=== PATIENT | male | born 2000 | race Caucasian/White ===

== ENCOUNTER 2024-12-05 11:36 | Inpatient (IN) ==
[2024-12-05 12:50] LABS: Hematocrit (blood only) 52.9 % (42.0-52.0); Hemoglobin 18.5 g/dl (14.0-18.0); Immature Granulocytes # (auto) 0.02 K/uL (0.01-0.20); Immature Granulocytes % (auto) 0.2 %; Mean Corpuscular Hemoglobin 31.1 pg (25.0-34.0); Mean Corpuscular Volume 88.9 fL (80.0-100.0); Platelet Count 316 K/uL (130-400); RDW Standard Deviation 42.4 fL (36.4-46.3); Red Blood Count 5.95 M/uL (4.70-6.10); White Blood Count 10.20 K/ul (4.8-10.8)
--- NOTE | 2024-12-05 12:57 | Emergency Department Note ---
History of Present Illness General Chief complaint: Illness Stated complaint: ACUTE SLEEP DEPRIVATION, BENADRYL OVERUSE Time Seen by Provider: 12/05/24 11:50 History of Present Illness Provider complaint: Mental health evaluation 24-year-old male presents emergency department for mental health evaluation. Patient reports he has not slept the last 54 hours. Patient states he is too anxious about his upcoming exams and academic performance. Patient states he is afraid he is going to fail. Patient reports he tried to take medications last night to sleep. Patient states he took 325 mg Benadryl between 11 PM and 2 AM yesterday in addition to 3 ibuprofen PMs last night between the same time. But still not been able to sleep. Patient reports no depression. Patient states sometimes he feels like the world will be better if he was not here. Home Medications Medication Instructions Recorded Confirmed Type No Known Home Medications 12/05/24 12/05/24 History Past Med/Surg History Problem List (Updated 12/05/24 @ 18:29 by Santiago Briceno MD) Anxiety (Acute) Social History Smoking Status: Never smoker Preferred Language: Uzbek Feels Safe at Home: Yes Gender Identity: Male Physical Exam Vital Signs Vital Signs - 24 hr 12/05/24 11:42 12/05/24 11:59 12/05/24 15:46 Temperature 36.6 C 37.1 C Temperature Source Oral Oral Pulse Rate 99 H 79 Pulse Rate [Left Finger] 60 Pulse Rhythm [Left Finger] Regular Pulse Strength [Left Finger] Normal Respiratory Rate 16 18 Respiratory Effort / Characteristics Non-Labored Spontaneous Non-Labored Respiratory Depth Normal Normal Respiratory Pattern Regular Regular Blood Pressure 135/86 Blood Pressure [Left Arm] 113/70 Blood Pressure Mean 102 Blood Pressure Mean [Left Arm] 84 Blood Pressure Position [Left Arm] Lying Pulse Oximetry 98 99 Oxygen Delivery Method Room Air Room Air Sepsis Recent Fever Within 48 Hours No Sepsis New/Unexplained Change in Mental Status No Sepsis Action Taken by Nursing No Action Required Physical Exam GENERAL: oriented to person, place, and time. appears well-developed and well- nourished. HENT: Exam performed. - Head: Normocephalic and atraumatic. EYES: Conjunctivae and EOM are normal. Right eye exhibits no discharge. Left eye exhibits no discharge. No scleral icterus. NECK: Normal range of motion. Neck supple. No JVD present. CV: Normal rate, regular rhythm, normal heart sounds and intact distal pulses. There is no peripheral edema. Palpable radial pulses bue. PULM/CHEST: Effort normal and breath sounds normal. No respiratory distress. No stridor. no wheezes. no rales. ABD: The abdomen is soft. There is no tenderness. NEURO: Motor and sensation grossly intact. SKIN: Skin is warm and dry. He is not diaphoretic. PSYCH: Pressured speech. Course Course 1150: The patient was evaluated in room D3B. A complete history and physical exam was performed Cardiac monitoring: An order was placed for continuous cardiac monitoring. The monitor shows a rate of 80 with sinus rhythm interpreted by me 1429: Patient medically cleared. Patient amenable to inpatient treatment. Case management is working up getting the patient and placement treatment. 1740: Patient excepted to 3 S. Medical Decision Making Laboratory Data Attestation: I reviewed the patient's lab results. 12/05/24 12:33 12/05/24 12:33 Lab Results 12/05/24 12/05/24 Range/Units 12:33 13:45 WBC 10.20 (4.8-10.8) K/ul RBC 5.95 (4.70-6.10) M/uL Hgb 18.5 H (14.0-18.0) g/dl Hct 52.9 H (42.0-52.0) % MCV 88.9 (80.0-100.0) fL MCH 31.1 (25.0-34.0) pg MCHC 35.0 (32.0-36.0) g/dL RDW Std Deviation 42.4 (36.4-46.3) fL RDW Coeff of Jenna 12.9 (11.5-14.5) % Plt Count 316 (130-400) K/uL MPV 10.1 (9.4-12.4) fL Immature Gran % (Auto) 0.2 % Neut % (Auto) 74.0 % Lymph % (Auto) 16.5 % [place] % (Auto) 8.4 % Eos % (Auto) 0.2 % Baso % (Auto) 0.7 % Neut # (Auto) 7.55 H (1.40-6.50) K/uL Lymph # (Auto) 1.68 (1.20-3.40) K/uL [place] # (Auto) 0.86 H (0.11-0.59) K/uL Eos # (Auto) 0.02 (0.00-0.50) K/uL Baso # (Auto) 0.07 (0.00-0.20) K/uL Immature Gran # (Auto) 0.02 (0.01-0.20) K/uL Sodium 140 (136-145) mmol/L Potassium 4.2 (3.5-5.1) mmol/L Chloride 106 (98-107) mmol/L Carbon Dioxide 27 (21-32) mmol/L Anion Gap 7 (3-11) BUN 15 (6-23) mg/dl Creatinine 0.93 (0.6-1.4) mg/dl Est Cr Clr Drug Dosing 107.7 ml/min eGFR 119.06 BUN/Creatinine Ratio 16.1 (10-20) Glucose 92 (70-99(Fasting)) mg/dl Calcium 9.8 (8.6-10.3) mg/dl Total Bilirubin 0.5 (0.2-1.0) mg/dl AST 24 (13-39) U/L ALT 29 (7-52) U/L Alkaline Phosphatase 78 (34-104) U/L Total Protein 7.9 (6.0-8.3) gm/dl Albumin 4.7 (3.4-5.0) gm/dl Globulin 3.2 (2.5-4.0) gm/dl Albumin/Globulin Ratio 1.5 (0.9-2) TSH 2.058 (0.300-4.500) uIu/ml Urine Color Yellow Urine Appearance Turbid A (Clear) Urine pH 8.0 H (4.5-7.5) Ur Specific [place] 1.010 (1.000-1.030) Urine Protein Negative (Negative) Urine Glucose (UA) Negative (Negative) Urine Ketones Negative (Negative) Urine Blood Negative (Negative) Urine Nitrite Negative (Negative) Urine Bilirubin Negative (Negative) Urine Urobilinogen Negative (Negative) Ur Leukocyte Esterase 3+ H (Negative) Urine WBC (Auto) 11-20 H (0-5) /hpf Urine RBC (Auto) 0-2 (0-2) /hpf U Hyaline Cast (Auto) 0-2 (0-2) /lpf U Epithel Cells (Auto) 6-10 H (0-2) /hpf Urine Bacteria (Auto) 4+ H (None Seen) Urine Comment Salicylates < 3.0 L (3.0-30) mg/dl Urine Opiates Screen Neg (Neg) Ur Methadone, Qual Neg (Neg) Urine Fentanyl Screen Neg (Neg) Acetaminophen < 3 L (10-30) ug/ml Urine Barbiturates Neg (Neg) Ur Phencyclidine (PCP) Neg (Neg) U Amphetamin/Meth Scrn Neg (Neg) MDMA (Ecstasy) Screen Neg (Neg) U Benzodiazepines Scrn Neg (Neg) Ur Cocaine Metabolite Neg (Neg) U Marijuana (THC) Screen Neg (Neg) Ethyl Alcohol mg/dL < 10.0 (<10.0) mg/dl ECG Data Attestation: I personally reviewed and interpreted this ECG as follows: Rate (beats per minute): 76 Rhythm: + normal sinus ECG Intervals/blocks: + Normal QRS, + Normal WA and + Normal QT-c ECG ST segments: + Normal ST segments [facility] Narrative 1150: The patient was evaluated in room D3B. A complete history and physical exam was performed Cardiac monitoring: An order was placed for continuous cardiac monitoring. The monitor shows a rate of 80 with sinus rhythm interpreted by wv 1429: Patient medically cleared. Patient amenable to inpatient treatment. Case management is working up getting the patient and placement treatment. 1740: Patient excepted to 3 S. Impression & Plan Anxiety Discharge Plan Visit Data Chief Complaint: Illness Stated Complaint: ACUTE SLEEP DEPRIVATION, BENADRYL OVERUSE ED Provider: Santiago Briceno Discharge Problem: Anxiety Patient Disposition: Admitted As Inpatient Condition: Fair Discharge Instructions Interventions: ED Discharge Assessment Last Done: 12/05/24 17:47
[2024-12-05 13:07] LABS: Alanine Aminotransferase 29.0 U/L (7-52); Albumin Globulin Ratio 1.5 (0.9-2); Albumin Level 4.7 gm/dl (3.4-5.0); Alkaline Phosphatase 78.0 U/L (34-104); Anion Gap 7.0 (3-11); Bilirubin,Total 0.5 mg/dl (0.2-1.0); Blood Urea Nitrogen 15.0 mg/dl (6-23); Calcium 9.8 mg/dl (8.6-10.3); Carbon Dioxide 27.0 mmol/L (21-32); Chloride 106.0 mmol/L (98-107); Creatinine Clr Calc Pharmacy 107.7 ml/min; Globulin 3.2 gm/dl (2.5-4.0); Glucose 92.0 mg/dl (70-99(Fasting)); Potassium 4.2 mmol/L (3.5-5.1); Sodium 140.0 mmol/L (136-145); Total Protein 7.9 gm/dl (6.0-8.3)
[2024-12-05 13:10] LABS: Acetaminophen < 3 ug/ml (10-30); Salicylate < 3.0 mg/dl (3.0-30)
[2024-12-05 13:22] LABS: Thyroid Stimulating Hormone 2.058 uIu/ml (0.300-4.500)
[2024-12-05 13:59] LABS: Appearance Urine Turbid (Clear); Bacteria Urine Automated 4+ (None Seen); Cast Urine Automated 0-2 /lpf (0-2); Glucose Urine UA Negative (Negative); RBC Urine Automated 0-2 /hpf (0-2)
[2024-12-05 14:28] LABS: Amphetamines+Metham, Urine Neg (Neg); MDMA (Ecstacy), Urine Neg (Neg); Marijuana, Urine Neg (Neg)
--- NOTE | 2024-12-05 15:28 | Electrocardiogram Report ---
Test Reason : Blood Pressure : */* mmHG Vent. Rate : 76 BPM Atrial Rate : 76 BPM P-R Int : 126 ms QRS Dur : 112 ms QT Int : 370 ms P-R-T Axes : 65 57 35 degrees QTcB Int : 416 ms Normal sinus rhythm Normal ECG No previous ECGs available Confirmed by Vincent Santos ([id number]) on 12/05/2024 3:28:16 PM Referred By: REFERRED SELF Confirmed By: Vincent Santos
[2024-12-05] MEDS ORDERED: MAGNESIUM HYDROXIDE SUSP 30 ML UDC PO PRN (17:58)
[2024-12-05] MEDS ORDERED: BISMUTH SUBSALICYLATE 262 MG CHEW PO PRN (17:58)
[2024-12-05] MEDS ORDERED: SODIUM CHLORIDE 0.65% NA SOLN 45 ML (OCEAN) PRN (17:58)
[2024-12-05] MEDS ORDERED: ALUMINUM/MAGNESIUM SUSP 30 ML UDC PO PRN (17:58)
[2024-12-05] MEDS ORDERED: ACETAMINOPHEN 325 MG TAB PO PRN (17:58)
[2024-12-05] MEDS: LORazepam 1 MG TAB PO SCH (20:18)
[2024-12-06] MEDS: VORTIOXETINE HYDROBROMIDE 5 MG TAB PO SCH (13:06)
--- NOTE | 2024-12-06 13:38 | History & Physical ---
Date of Service December 06, 2024 Impression / Recommendations Impression KASEY PALOMARES is a 24-year-old M has no past psychiatric history, and was admitted on 12/05/24 17:52 on a 201 voluntary commitment for insomnia, anxious ruminations, and passive suicidal ideation. Presentation consistent with generalized anxiety disorder with panic attacks, social anxiety disorder (will further clarify). Presents significant insomnia related to anxiety in the context of academic stressors and recent break-up with girlfriend. Does not appear to be in a major mood or psychotic episode and symptoms appear to have gradually gotten worse over time. Presents associated physical anxiety symptoms with increase in panic attacks. Recent passive suicidal ideation related to overwhelming anxiety and fear of failure. Past SSRI antidepressant trial was limited in time and he experienced sexual side effects. No trauma or family psychiatric history endorsed. Labs reviewed and urinalysis presented with positive leukocyte esterase and WBC however patient is asymptomatic and this is likely a result of dehydration. Plan to start vortioxetine for anxiety given minimal sexual side effects and clonidine for sleep and anxiety; medication side effects and adverse effects discussed with patient and agreeable. Patient would benefit from cognitive behavioral therapy. Overall, I spent a total of 75 minutes with this case including review of chart records, nursing report, review of lab work, direct evaluation of the patient at bedside, counseling the patient, multidisciplinary team meeting, orders, and documentation in the electronic health record. (1) Insomnia: (2) Generalized anxiety disorder with panic attacks: (3) Passive suicidal ideations: (4) Social anxiety disorder: Plan 12/06/2024:The patient was admitted to the [facility] ([facility] health unit) on q15 min checks (behavioral with suicide precautions) for safety. The patient will participate in group, recreational, and milieu therapies and will be offered additional individual and family sessions as clinically appropriate. Start vortioxetine 5 mg daily Start lorazepam 1 mg at bedtime Start clonidine 0.1 mg at bedtime Labs: Vitamin D, vitamin B12, hemoglobin A1c, fasting lipid Questionnaires: CLARKE-7, MDQ, social anxiety scale Inventory Assets Strengths: independent, support seeking Needs: outpatient connection, medication management Suicide Risk Level Suicide Risk Level: Low (q15 min observation checks) Risk Factors Assessment Male: Yes : Yes Do You Have Access To A Gun?: No Health Problems: Yes (low testosterone) Mental Health Diagnoses: Yes Substance Use Disorders: No Previous Attempt: No Family History of Suicide: No Previous Psychiatric Hospitalization: No Hopelessness: No Protective Factors Assessment Sikhism Beliefs: No : No Responsible for Young Children: No Employed: No Stable Relationships: Yes Supportive Family: Yes Good Rapport with Provider: Yes Absence of Any Risk Factors Above: No Psychiatric History Identifying Data KASEY PALOMARES is a 24-year-old M has no past psychiatric history, and was admitted on 12/05/24 17:52 on a 201 voluntary commitment for insomnia, anxious ruminations, and passive suicidal ideation. Chief Complaint "Went to the therapist appointment yesterday and did not sleep for 54 hours due to serious anxiety" History of Present Illness Patient complains of recent academic stressors and breaking up with his girlfriend 1 week ago. Since then has an increase in anxious ruminations with fear of failure and often catastrophizes. This was his first real relationship. Reports regular anxious ruminations about academic stressors and social anxiety. Anxiety started in undergrad and has worsened since then. Associated sleep dysfunction with trouble falling asleep and has early awakenings. Associated physical symptoms of anxiety such as increased heart rate, restlessness, jaw clenching. Complains of recent panic attack prior to an exam and this is increased in frequency and intensity. "My mind is more active with a more negative thought pattern". Complains of sleep pattern disturbances, change in appetite, racing thoughts, excessive worry, anxiety attacks, hopelessness. He denies any change in activity, impulsivity, risk-taking behavior, obsessive-compulsive behavior, paranoia. Denies that this is episodic and has been gradually getting worse. Denies drug or alcohol problem and drinks socially. Denies suicidal ideation however reports recent passive SI related to a "lack of success" academically and feels he will never make it. Denies past suicide attempts. Goals of treatment are to get on the right medications to help cope with anxiety and build more positive thought pattern. Wants to learn new coping strategies. Wants to get 6 to 7 hours of sleep at night. Wants to feel more hopeful about the future. No past psychiatric hospitalizations. Previously took escitalopram in 2022 for 1 month had inconsistent use with side effect of lowered libido. Suspected insomnia and father and denies other known mental health problems in family. Takes testosterone weekly and reports levels have been stable. Patient grew up in [facility] and reports having a stable and good childhood. Denies emotional neglect, emotional abuse, physical abuse, sexual abuse. Has 1 fraternal twin brother who lives in [place]. 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 No legal problems or arrests. 12/05/24 18:40 - Psychiatric Liason Note by Karon Plata Pt arrived to [facility] at 1749 via wheelchair. Pt escorted by this check writer salesperson and Alana Will, Psych liaison RN. Valuables searched and secured. Pt given tour of room and unit. Admission assessments complete. The patient arrived to the ED via Uber after a therapy session with Michelle Rodriguez through [facility]. This was their first time meeting and Michelle urged the patient to seek medical help due to having not slept since Wednesday morning (12/03/2024). The patient reports they have not slept for 54+ hours. The patient reports that he has been having anxiety surrounding his exams in his PHD program in mathematics, which has caused him not to be able to sleep. He reports that he also had a break up with his girlfriend 1 week ago, which has been a stressor. He took 325mg of benadryl and 3 ibuprofen pm for sleep within a few hours of one another last night. He reports that he would like to take part in treatment to decrease anxiety and be able to sleep. The patient does not currently see any outpatient providers, besides the therapist that he saw for the first time today, Michelle Rodriguez. He denies taking medications, or having a history of psychiatric illnesses. He reported that he has always been anxious, but "never sought medical help for it". He denies SI at this time, but reports he did have thoughts that he would be better off previously in the day. He reports that he usually only has these thoughts during times of high stress. He reports the thoughts have been occurring the last few years at times of high stress. He denies a plan, HI, and AVH. ROIs obtained for the patient's mother, as well as [facility]. Past Psychiatric History Current Psychiatric Diagnosis: Anxiety Do You Have Access To A Gun?: No History of Previous Suicide Attempt: No Allergies Allergy/AdvReac Type Severity Reaction Status Date / Time bee venom protein (honey bee) Allergy Unverified 12/05/24 22:33 Home Medications Medication Instructions Recorded Confirmed Type No Known Home Medications 12/05/24 12/05/24 History Family History Family History of: Doesn't Know Alcohol History Hx of Alcohol Use Over the Past 12 Months: No AUDIT Total Score: 0 Smoking Use Have You Smoked or Used Tobacco Products in the Last 30 Days: No Smoking Status: Never smoker Substance History Hx of Prescription Med Misuse Over the Past 12 Months: No Hx of Over the Counter Med Misuse Over the Past 12 Months: No Hx of Inhalent Misuse Over the Past 12 Months: No Hx of Organic Substance Use Over the Past 12 Months: No Hx of Illegal Substances/Street Drug Use Over Past 12 Months: No Problems as a Result of Past Substance Use: None Identified Personal History Living Arrangements: Apartment Highest Grade Completed: [employer] Highest Grade Completed Comment: Bachelor degree in Math Marital Status: Single Number Of Children: 0 Beliefs That Will Affect Care: None Patient History Social History Smoking Status: Never smoker Preferred Language: Slovak Communication Ability: Effective 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 Beliefs That Will Affect Care: None Feels Safe at Home: Yes Gender Identity: Male Assistive Devices: None Physical Exam Mental Examination: Appearance: Disheveled Eye Contact: Direct Eye Contact (when he does make contact) Motor Behavior: Unremarkable Speech: Slurred (slightly, has to repeat himself to be understood) Mood: Anxious Affect: Anxious, Congruent and Nervous Thought Process: Intact and Linear Thought Content: Racing Hallucinations: None Insight: Fair Judgement: Fair Vital Signs (Past 24 Hours): Last Vital Signs Temp 36.7 C 12/06/24 06:16 Pulse 98 H 12/06/24 06:17 Resp 16 12/06/24 06:16 BP 97/63 L 12/06/24 06:17 Pulse Ox 99 12/05/24 18:09 O2 Del Method Room Air 12/05/24 18:09 Exam Statement: A physical exam was performed in the ED for the purposes of medical clearance. I accept that physical as correct and adequate for the purposes of the inpatient physical exam. Results & Data ([facility]) Laboratory Results Laboratory Results - last 24 hr 12/05/24 12/05/24 13:45 Unknown Urine Color Yellow Urine Appearance Turbid A Urine pH 8.0 H Ur Specific [place] 1.010 Urine Protein Negative Urine Glucose (UA) Negative Urine Ketones Negative Urine Blood Negative Urine Nitrite Negative Urine Bilirubin Negative Urine Urobilinogen Negative Ur Leukocyte Esterase 3+ H Urine WBC (Auto) 11-20 H Urine RBC (Auto) 0-2 U Hyaline Cast (Auto) 0-2 U Epithel Cells (Auto) 6-10 H Urine Bacteria (Auto) 4+ H Urine Comment Urine Opiates Screen Neg Ur Methadone, Qual Neg Urine Fentanyl Screen Neg Urine Barbiturates Neg Ur Phencyclidine (PCP) Neg U Amphetamin/Meth Scrn Neg MDMA (Ecstasy) Screen Neg U Benzodiazepines Scrn Neg Ur Cocaine Metabolite Neg U Marijuana (THC) Screen Neg SARS-CoV-2, RNA, NAAT NEGATIVE Current Inpatient Medications Current Inpatient Medications: Current Inpatient Medications Acetaminophen (Acetaminophen 325 Mg Tab) 650 mg PO Q4H PRN PRN Reason: Headache or Minor Fever Stop: 01/04/25 17:57 Al Hydrox/Mg Hydrox/Simethicone (Aluminum/Magnesium Susp 30 Ml Udc) 30 ml PO Q4H PRN PRN Reason: GI Upset Stop: 01/04/25 17:57 Bismuth Subsalicylate (Bismuth Subsalicylate 262 Mg Chew) 2 tab PO Q30M PRN PRN Reason: Loose Stool/Diarrhea Stop: 01/04/25 17:57 Clonidine HCl (Clonidine Hcl 0.1 Mg Tab) 0.1 mg PO HS AJ Stop: 01/05/25 21:59 Hydroxyzine HCl (Hydroxyzine Hcl 25 Mg Tab) 50 mg PO HSZ PRN PRN Reason: Insomnia Stop: 01/04/25 17:57 Hydroxyzine HCl (Hydroxyzine Hcl 25 Mg Tab) 25 mg PO Q4H PRN PRN Reason: Anxiety Stop: 01/04/25 17:57 Last Admin: 12/06/24 12:30 Dose: 25 mg Lorazepam (Lorazepam 1 Mg Tab) 1 mg PO HS AJ Stop: 01/04/25 20:59 Last Admin: 12/05/24 20:21 Dose: Not Given Magnesium Hydroxide (Magnesium Hydroxide Susp 30 Ml Udc) 30 ml PO DAILY PRN PRN Reason: Constipation Stop: 01/04/25 17:57 Sodium Chloride (Sodium Chloride 0.65% Na Soln 45 Ml ([place])) 1 - 2 sprays NA PRN PRN PRN Reason: Nasal Dryness/Congestion Stop: 01/04/25 17:57 Vortioxetine (Vortioxetine Hydrobromide 5 Mg Tab) 5 mg PO DAILY AJ Stop: 01/05/25 12:44 Last Admin: 12/06/24 13:06 Dose: 5 mg
[2024-12-07 08:41] LABS: Cholesterol 147.0 mg/dl (0-200); HDL Cholesterol 56.0 mg/dl; Triglycerides 62.0 mg/dl (0-150)
[2024-12-07 08:48] LABS: Hemoglobin A1C 5.0 % (4.5-5.6)
[2024-12-07] MEDS: CHOLECALCIFEROL 25 MCG (1000 UNITS) TAB PO SCH (11:20)
[2024-12-07] MEDS: PROPRANOLOL HCL 10 MG TAB PO SCH (13:27)
--- NOTE | 2024-12-07 15:01 | Psychiatric Progress Note ---
Date of Service December 07, 2024 Impression / Recommendations Impression KASEY PALOMARES is a 24-year-old M has no past psychiatric history, and was admitted on 12/05/24 17:52 on a 201 voluntary commitment for insomnia, anxious ruminations, and passive suicidal ideation. Presentation consistent with generalized anxiety disorder with panic attacks, social anxiety disorder (will further clarify). Presents significant insomnia related to anxiety in the context of academic stressors and recent break-up with girlfriend. Does not appear to be in a major mood or psychotic episode and symptoms appear to have gradually gotten worse over time. Presents associated physical anxiety symptoms with increase in panic attacks. Recent passive suicidal ideation related to overwhelming anxiety and fear of failure. Past SSRI antidepressant trial was limited in time and he experienced sexual side effects. No trauma or family psychiatric history endorsed. A:Patient presents an improvement in physical anxiety symptoms however still appears restless. Concern for active major depressive episode and associated sleep maintenance dysfunction. Tolerating vortioxetine and clonidine and we will plan to continue. Presents with low normal Vitamin D and will start supplementation. Given significant insomnia may require to be on a sleep aid for an extended period of time and will transition from benzodiazepine to zolpidem. Reviewed his questionnaires which were suggestive of generalized anxiety disorder and social anxiety disorder. Does not appear to be in a manic episode based on symptomatology. Today I introduced cognitive behavioral therapy and automatic negative thoughts. Overall, I spent a total of 45 minutes with this case including review of chart records, nursing report, review of lab work, direct evaluation of the patient at bedside, counseling the patient, multidisciplinary team meeting, orders, and documentation in the electronic health record. (1) Insomnia: (2) Passive suicidal ideations: (3) Major depressive disorder, single episode, moderate with anxious distress: (4) Generalized anxiety disorder: (5) Social anxiety disorder: Plan 12/07/2024: Discontinue lorazepam Start zolpidem 10 mg at bedtime Start propranolol 5 mg 3 times daily Start vitamin D3 25 mcg daily 12/06/2024:The patient was admitted to the [facility] ([facility] mental health unit) on q15 min checks (behavioral with suicide precautions) for safety. The patient will participate in group, recreational, and milieu therapies and will be offered additional individual and family sessions as clinically appropriate. Start vortioxetine 5 mg daily Start lorazepam 1 mg at bedtime Start clonidine 0.1 mg at bedtime Labs: Vitamin D, vitamin B12, hemoglobin A1c, fasting lipid Questionnaires: CLARKE-7, MDQ, social anxiety scale Inventory Assets Strengths: independent, support seeking Needs: outpatient connection, medication management Suicide Risk Level Suicide Risk Level: Low (q15 min observation checks) Risk Factors Assessment Male: Yes : Yes Do You Have Access To A Gun?: No Health Problems: Yes (low testosterone) Mental Health Diagnoses: Yes Substance Use Disorders: No Previous Attempt: No Family History of Suicide: No Previous Psychiatric Hospitalization: No Hopelessness: No Protective Factors Assessment Sabianist Beliefs: No : No Responsible for Young Children: No Employed: No Stable Relationships: Yes Supportive Family: Yes Good Rapport with Provider: Yes Absence of Any Risk Factors Above: No Interval History Identifying Information KASEY PALOMARES is a 24-year-old M has no past psychiatric history, and was admitted on 12/05/24 17:52 on a 201 voluntary commitment for insomnia, anxious ruminations, and passive suicidal ideation. Chief Complaint Anxiety, Depression Review of Systems Sleep Information Total Hours of Sleep: 6.75 Meal Information Percent Meal Consumed - Breakfast: 100 Percent Meal Consumed - Lunch: 90 Percent Meal Consumed - Dinner: 90 Subjective Subjective Patient was seen & assessed and interval progress reviewed with treatment team nursing and social work Patient slept 6.25 hours. On interview he appears restless and has fleeting eye contact. He reports sleeping 4-1/2 hours. At his best was getting 6 to 7 hours nightly. He reports moving to [place] to start his graduate program in mid September and it has been stressful to be away from his community. Reports cumulative stress from expectations in his graduate program. Says he was performing well in undergrad however feels he is performing below average in this program. Endorses a fear of being kicked out of the program. Feels more isolated and reports poor self-care and lower mood. Endorses mild weight loss. He describes himself as "neurotic, anxious, thoughtful". Reports past period of low mood with sleep impairments elevated anxiety however would only last for 1 to 2 weeks and this has been much more severe. Reports physical symptoms of anxiety such as restlessness and muscle tension have improved with clonidine however still present. Denies any GI upset or headache. Physical Exam Mental Examination Appearance: Disheveled Eye Contact: Direct Eye Contact (when he does make contact) Motor Behavior: Unremarkable Speech: Normal Mood: Anxious Affect: Anxious, Congruent and Nervous Thought Process: Intact and Linear Thought Content: Racing Hallucinations: None Insight: Fair Judgement: Fair Vital Signs (Past 24 Hours) Last Vital Signs Temp 36.9 C 12/07/24 06:20 Pulse 68 12/07/24 13:32 Resp 18 12/07/24 06:20 BP 114/72 12/07/24 13:32 Pulse Ox 99 12/05/24 18:09 O2 Del Method Room Air 12/05/24 18:09 Results & Data ([facility]) Laboratory Results Laboratory Results - last 24 hr 12/07/24 07:30 Estimat Average Glucose 97 Hemoglobin A1c 5.0 Triglycerides 62 Cholesterol 147 LDL Cholesterol, Calc 79 VLDL Cholesterol, Calc 12 HDL Cholesterol 56 Cholesterol/HDL Ratio 2.6 Vitamin B12 381 25-OH Vitamin D Total 30.9 Current Inpatient Medications Current Inpatient Medications: Current Inpatient Medications Acetaminophen (Acetaminophen 325 Mg Tab) 650 mg PO Q4H PRN PRN Reason: Headache or Minor Fever Stop: 01/04/25 17:57 Al Hydrox/Mg Hydrox/Simethicone (Aluminum/Magnesium Susp 30 Ml Udc) 30 ml PO Q4H PRN PRN Reason: GI Upset Stop: 01/04/25 17:57 Bismuth Subsalicylate (Bismuth Subsalicylate 262 Mg Chew) 2 tab PO Q30M PRN PRN Reason: Loose Stool/Diarrhea Stop: 01/04/25 17:57 Clonidine HCl (Clonidine Hcl 0.1 Mg Tab) 0.1 mg PO HS AJ Stop: 01/05/25 21:59 Last Admin: 12/06/24 20:40 Dose: 0.1 mg Hydroxyzine HCl (Hydroxyzine Hcl 25 Mg Tab) 50 mg PO HSZ PRN PRN Reason: Insomnia Stop: 01/04/25 17:57 Hydroxyzine HCl (Hydroxyzine Hcl 25 Mg Tab) 25 mg PO Q4H PRN PRN Reason: Anxiety Stop: 01/04/25 17:57 Last Admin: 12/06/24 12:30 Dose: 25 mg Magnesium Hydroxide (Magnesium Hydroxide Susp 30 Ml Udc) 30 ml PO DAILY PRN PRN Reason: Constipation Stop: 01/04/25 17:57 Propranolol HCl (Propranolol Hcl 10 Mg Tab) 5 mg PO TID AJ Stop: 01/06/25 13:59 Last Admin: 12/07/24 13:27 Dose: 5 mg Sodium Chloride (Sodium Chloride 0.65% Na Soln 45 Ml ([place])) 1 - 2 sprays NA PRN PRN PRN Reason: Nasal Dryness/Congestion Stop: 01/04/25 17:57 Vitamin D (Cholecalciferol 25 Mcg (1000 Units) Tab) 25 mcg PO QAM AJ Stop: 01/06/25 10:59 Last Admin: 12/07/24 11:20 Dose: 25 mcg Vortioxetine (Vortioxetine Hydrobromide 5 Mg Tab) 5 mg PO DAILY AJ Stop: 01/05/25 12:44 Last Admin: 12/07/24 08:08 Dose: 5 mg Zolpidem Tartrate (Zolpidem Tartrate 5 Mg Tab) 10 mg PO HS [facility] Stop: 01/06/25 21:59 Mental Health & Subst Abuse Tx Therapist Name of Therapist: Michelle Rodriguez Post Discharge Appointments Primary Care Physician Name Of Family Doctor/PCP: BOOGIE Other #1: Name of Aftercare Appointment: Student care and advocacy ([facility]) post hospitalization zoom Phone Number of Aftercare Appointment: [phone] Date of Aftercare Appointment: 12/14/24 Time of Aftercare Appointment: 10am Aftercare Appointment Comment: zoom link will be sent to your [facility] email Contact Information Discharge Discharge Address: [facility] [address] [place] [address]
[2024-12-07] MEDS: ZOLPIDEM TARTRATE 5 MG TAB PO SCH (21:08)
--- NOTE | 2024-12-08 13:45 | Psychiatric Progress Note ---
Date of Service December 08, 2024 Impression / Recommendations Impression KASEY PALOMARES is a 24-year-old M has no past psychiatric history, and was admitted on 12/05/24 17:52 on a 201 voluntary commitment for insomnia, anxious ruminations, and passive suicidal ideation. Presentation consistent with generalized anxiety disorder with panic attacks, social anxiety disorder (will further clarify). Presents significant insomnia related to anxiety in the context of academic stressors and recent break-up with girlfriend. Does not appear to be in a major mood or psychotic episode and symptoms appear to have gradually gotten worse over time. Presents associated physical anxiety symptoms with increase in panic attacks. Recent passive suicidal ideation related to overwhelming anxiety and fear of failure. Past SSRI antidepressant trial was limited in time and he experienced sexual side effects. No trauma or family psychiatric history endorsed. A: Patient continues to present persistent insomnia despite medication adjustments. Improvement in physical symptoms of anxiety. Continued anxious ruminations. Tolerating vortioxetine well and will increase dose. MNPR due to significant insomnia, potential for sleep disruptions Overall, I spent a total of 40 minutes with this case including review of chart records, nursing report, review of lab work, direct evaluation of the patient at bedside, counseling the patient, multidisciplinary team meeting, orders, and documentation in the electronic health record. (1) Insomnia: (2) Passive suicidal ideations: (3) Major depressive disorder, single episode, moderate with anxious distress: (4) Generalized anxiety disorder: (5) Social anxiety disorder: Plan 12/08/2024: Increase vortioxetine to 10 mg daily Discontinue zolpidem Start lorazepam 1 mg bedtime Start trazodone 100 mg at bedtime 12/07/2024: Discontinue lorazepam Start zolpidem 10 mg at bedtime Start propranolol 5 mg 3 times daily Start vitamin D3 25 mcg daily 12/06/2024:The patient was admitted to the [facility] ([facility] inpatient mental health unit) on q15 min checks (behavioral with suicide precautions) for safety. The patient will participate in group, recreational, and milieu therapies and will be offered additional individual and family sessions as clinically appropriate. Start vortioxetine 5 mg daily Start lorazepam 1 mg at bedtime Start clonidine 0.1 mg at bedtime Labs: Vitamin D, vitamin B12, hemoglobin A1c, fasting lipid Questionnaires: CLARKE-7, MDQ, social anxiety scale Inventory Assets Strengths: independent, support seeking Needs: outpatient connection, medication management Suicide Risk Level Suicide Risk Level: Low (q15 min observation checks) Risk Factors Assessment Male: Yes : Yes Do You Have Access To A Gun?: No Health Problems: Yes (low testosterone) Mental Health Diagnoses: Yes Substance Use Disorders: No Previous Attempt: No Family History of Suicide: No Previous Psychiatric Hospitalization: No Hopelessness: No Protective Factors Assessment Lutheran Beliefs: No : No Responsible for Young Children: No Employed: No Stable Relationships: Yes Supportive Family: Yes Good Rapport with Provider: Yes Absence of Any Risk Factors Above: No Interval History Identifying Information KASEY PALOMARES is a 24-year-old M has no past psychiatric history, and was admitted on 12/05/24 17:52 on a 201 voluntary commitment for insomnia, anxious ruminations, and passive suicidal ideation. Chief Complaint Insomnia, anxiety Review of Systems Sleep Information Total Hours of Sleep: 5 Meal Information Percent Meal Consumed - Breakfast: 100 Percent Meal Consumed - Lunch: 100 Percent Meal Consumed - Dinner: 100 Subjective Subjective Patient was seen & assessed and interval progress reviewed with treatment team nursing and social work Per nursing has been more social and attending groups. Utilized Vistaril as needed overnight. Slept 5 hours. On interview patient appears to be visibly tired. He reports not sleeping well with Ambien and was able to fall asleep however woke up 1 to 2 hours later with constant anxious ruminations of whether he would be able to fall back asleep. Says that his "body will not let him sleep". Got a roommate in the middle of the night further disrupting sleep. Reports feeling physically calmer and that his breathing is slower. Says he is having less academic fear. He denies SI. Wants to address his sleep concerns. Physical Exam Mental Examination Appearance: Disheveled Eye Contact: Direct Eye Contact (when he does make contact) Motor Behavior: Unremarkable Speech: Normal Mood: Anxious Affect: Anxious, Congruent and Nervous Thought Process: Intact and Linear Thought Content: Racing Hallucinations: None Insight: Fair Judgement: Fair Vital Signs (Past 24 Hours) Last Vital Signs Temp 36.5 C 12/08/24 00:49 Pulse 63 12/08/24 00:49 Resp 16 12/08/24 00:49 BP 113/69 12/08/24 00:49 Pulse Ox 97 12/08/24 00:49 O2 Del Method Room Air 12/08/24 00:49 Results & Data ([facility]) Current Inpatient Medications Current Inpatient Medications: Current Inpatient Medications Acetaminophen (Acetaminophen 325 Mg Tab) 650 mg PO Q4H PRN PRN Reason: Headache or Minor Fever Stop: 01/04/25 17:57 Al Hydrox/Mg Hydrox/Simethicone (Aluminum/Magnesium Susp 30 Ml Udc) 30 ml PO Q 4H PRN PRN Reason: GI Upset Stop: 01/04/25 17:57 Bismuth Subsalicylate (Bismuth Subsalicylate 262 Mg Chew) 2 tab PO Q30M PRN PRN Reason: Loose Stool/Diarrhea Stop: 01/04/25 17:57 Clonidine HCl (Clonidine Hcl 0.1 Mg Tab) 0.1 mg PO HS AJ Stop: 01/05/25 21:59 Last Admin: 12/07/24 21:08 Dose: 0.1 mg Hydroxyzine HCl (Hydroxyzine Hcl 25 Mg Tab) 50 mg PO HSZ PRN PRN Reason: Insomnia Stop: 01/04/25 17:57 Last Admin: 12/08/24 01:24 Dose: 50 mg Hydroxyzine HCl (Hydroxyzine Hcl 25 Mg Tab) 25 mg PO Q4H PRN PRN Reason: Anxiety Stop: 01/04/25 17:57 Last Admin: 12/08/24 10:11 Dose: 25 mg Lorazepam (Lorazepam 1 Mg Tab) 1 mg PO HS AJ Stop: 01/07/25 21:59 Magnesium Hydroxide (Magnesium Hydroxide Susp 30 Ml Udc) 30 ml PO DAILY PRN PRN Reason: Constipation Stop: 01/04/25 17:57 Propranolol HCl (Propranolol Hcl 10 Mg Tab) 5 mg PO TID AJ Stop: 01/06/25 13:59 Last Admin: 12/08/24 08:02 Dose: 5 mg Sodium Chloride (Sodium Chloride 0.65% Na Soln 45 Ml ([place])) 1 - 2 sprays NA PRN PRN PRN Reason: Nasal Dryness/Congestion Stop: 01/04/25 17:57 Trazodone HCl (Trazodone Hcl 100 Mg Tab) 100 mg PO HS AJ Stop: 01/07/25 21:59 Vitamin D (Cholecalciferol 25 Mcg (1000 Units) Tab) 25 mcg PO QAM AJ Stop: 01/06/25 10:59 Last Admin: 12/08/24 08:03 Dose: 25 mcg Vortioxetine (Vortioxetine Hydrobromide 5 Mg Tab) 10 mg PO DAILY AJ Stop: 01/08/25 08:59 Mental Health & Subst Abuse Tx Psychiatrist Name of Psychiatrist: Sarah Garcia Psychiatrist's Date Of Appointment With Psychiatric Provider: 12/27/24 Time of Appointment with Psychiatrist: 10:10a Psychiatric Appointment Comment: $10copay. Bring ID and insurance card. Intake appt about 1.5hrs Therapist Name of Therapist: [facility] ([address] [facility] [place] [address] ) Therapist's Date of Therapist Appointment: 12/19/24 Time of Therapist Appointment: 9am Therapy Appointment Comment: In person appt. Will get reminder text two days before appt Post Discharge Appointments Primary Care Physician Name Of Family Doctor/PCP: [facility] Provider Appointment Comment: Follow up as needed Other #1: Name of Aftercare Appointment: Student care and advocacy ([facility]) post hospitalization zoom Phone Number of Aftercare Appointment: [phone] Date of Aftercare Appointment: 12/14/24 Time of Aftercare Appointment: 10am Aftercare Appointment Comment: zoom link will be sent to your [facility] email Contact Information Discharge Discharge Address: [facility] [address] [place] [address]
[2024-12-08] MEDS: LORazepam 1 MG TAB PO SCH (22:12)
[2024-12-09] MEDS: VORTIOXETINE HYDROBROMIDE 5 MG TAB PO SCH (08:47)
--- NOTE | 2024-12-09 09:57 | Psychiatric Progress Note ---
Date of Service December 09, 2024 Impression / Recommendations Impression KASEY PALOMARES is a 24-year-old M has no past psychiatric history, and was admitted on 12/05/24 17:52 on a 201 voluntary commitment for insomnia, anxious ruminations, and passive suicidal ideation. Presentation consistent with generalized anxiety disorder with panic attacks, social anxiety disorder (will further clarify). Presents significant insomnia related to anxiety in the context of academic stressors and recent break-up with girlfriend. Does not appear to be in a major mood or psychotic episode and symptoms appear to have gradually gotten worse over time. Presents associated physical anxiety symptoms with increase in panic attacks. Recent passive suicidal ideation related to overwhelming anxiety and fear of failure. Past SSRI antidepressant trial was limited in time and he experienced sexual side effects. No trauma or family psychiatric history endorsed. A: Improved sleep last night with medication adjustments. Tolerating medication changes and mood improving today and denies any SI. Continue to monitor sleep to ensure ongoing improvement. Support meeting later today. MNPR due to significant insomnia, potential for sleep disruptions Overall, I spent a total of 38 minutes on this case including meeting with the patient, reviewing the chart, nursing report, multidisciplinary team meeting, orders, and documentation. (1) Insomnia: (2) Passive suicidal ideations: (3) Major depressive disorder, single episode, moderate with anxious distress: (4) Generalized anxiety disorder: (5) Social anxiety disorder: Plan 12/09/2024: -Continue current medications and tx plan 12/08/2024: Increase vortioxetine to 10 mg daily Discontinue zolpidem Start lorazepam 1 mg bedtime Start trazodone 100 mg at bedtime 12/07/2024: Discontinue lorazepam Start zolpidem 10 mg at bedtime Start propranolol 5 mg 3 times daily Start vitamin D3 25 mcg daily 12/06/2024:The patient was admitted to the [facility] ([facility] inpatient mental health unit) on q15 min checks (behavioral with suicide precautions) for safety. The patient will participate in group, recreational, and milieu therapies and will be offered additional individual and family sessions as clinically appropriate. Start vortioxetine 5 mg daily Start lorazepam 1 mg at bedtime Start clonidine 0.1 mg at bedtime Labs: Vitamin D, vitamin B12, hemoglobin A1c, fasting lipid Questionnaires: CLARKE-7, MDQ, social anxiety scale Inventory Assets Strengths: independent, support seeking Needs: outpatient connection, medication management Suicide Risk Level Suicide Risk Level: Low (q15 min observation checks) (depression, anxiety and passive SI prior to admission but sleep improving and mood improving with no SI, feels safe and feels able to ask for support) Risk Factors Assessment Male: Yes : Yes Do You Have Access To A Gun?: No Health Problems: Yes (low testosterone) Mental Health Diagnoses: Yes Substance Use Disorders: No Previous Attempt: No Family History of Suicide: No Previous Psychiatric Hospitalization: No Hopelessness: No Protective Factors Assessment Bahai Beliefs: No : No Responsible for Young Children: No Employed: No Stable Relationships: Yes Supportive Family: Yes Good Rapport with Provider: Yes Absence of Any Risk Factors Above: No Interval History Identifying Information KASEY PALOMARES is a 24-year-old man has no past psychiatric history, and was admitted on 12/05/24 17:52 on a 201 voluntary commitment for insomnia, anxious ruminations, and passive suicidal ideation. Chief Complaint "I slept well". Review of Systems Sleep Information Total Hours of Sleep: 6.5 Meal Information Percent Meal Consumed - Breakfast: 100 Percent Meal Consumed - Lunch: 100 Percent Meal Consumed - Dinner: 100 Subjective Subjective Patient was seen & assessed and interval progress reviewed with nursing. Tearful at times yesterday due to distress from lack of sleep. Last evening rated his mood as "relaxed" and was reading. Slept more last night. Denying SI. Today reports improving mood related to improved sleep. Also feels glad he'll be starting outpatient therapy and have outpatient psychiatry. Support meeting later today with his parents. He wants to ensure he sleeps well again tonight. Denies any medication side effects. He feels the Trintellix is helping with anxiety and depression and he's noticed a difference already. Physical Exam Psychiatric Orientation: alert and oriented x 3 Apperance: appropriately dressed and appropriately groomed Eye Contact: + fair eye contact Motor Behavior: no abnormal motor movements Speech: normal rate/rhythm/volume of speech Affect: + constricted affect Mood: + anxious mood; no depressed mood Thought Process: goal directed thought process Thought Content: reality based without delusions Suicidal Thoughts: denies suicidal thoughts Homicidal Thoughts: denies homicidal thoughts Hallucinations: no auditory hallucinations and no visual hallucinations Insight: + fair insight Judgment: + fair judgement Vital Signs (Past 24 Hours) Last Vital Signs Temp 36.8 C 12/09/24 06:00 Pulse 64 12/09/24 06:00 Resp 21 12/09/24 06:00 BP 119/73 12/09/24 06:00 Pulse Ox 99 12/09/24 06:00 O2 Del Method Room Air 12/09/24 06:00 Results & Data ([facility]) Current Inpatient Medications Current Inpatient Medications: Current Inpatient Medications Acetaminophen (Acetaminophen 325 Mg Tab) 650 mg PO Q4H PRN PRN Reason: Headache or Minor Fever Stop: 01/04/25 17:57 Al Hydrox/Mg Hydrox/Simethicone (Aluminum/Magnesium Susp 30 Ml Udc) 30 ml PO Q4H PRN PRN Reason: GI Upset Stop: 01/04/25 17:57 Bismuth Subsalicylate (Bismuth Subsalicylate 262 Mg Chew) 2 tab PO Q30M PRN PRN Reason: Loose Stool/Diarrhea Stop: 01/04/25 17:57 Clonidine HCl (Clonidine Hcl 0.1 Mg Tab) 0.1 mg PO HS AJ Stop: 01/05/25 21:59 Last Admin: 12/08/24 22:12 Dose: 0.1 mg Hydroxyzine HCl (Hydroxyzine Hcl 25 Mg Tab) 50 mg PO HSZ PRN PRN Reason: Insomnia Stop: 01/04/25 17:57 Last Admin: 12/08/24 01:24 Dose: 50 mg Hydroxyzine HCl (Hydroxyzine Hcl 25 Mg Tab) 25 mg PO Q4H PRN PRN Reason: Anxiety Stop: 01/04/25 17:57 Last Admin: 12/08/24 10:11 Dose: 25 mg Lorazepam (Lorazepam 1 Mg Tab) 1 mg PO HS AJ Stop: 01/07/25 21:59 Last Admin: 12/08/24 22:12 Dose: 1 mg Magnesium Hydroxide (Magnesium Hydroxide Susp 30 Ml Udc) 30 ml PO DAILY PRN PRN Reason: Constipation Stop: 01/04/25 17:57 Propranolol HCl (Propranolol Hcl 10 Mg Tab) 5 mg PO TID AJ Stop: 01/06/25 13:59 Last Admin: 12/09/24 08:47 Dose: 5 mg Sodium Chloride (Sodium Chloride 0.65% Na Soln 45 Ml (Oil Trough)) 1 - 2 sprays NA PRN PRN PRN Reason: Nasal Dryness/Congestion Stop: 01/04/25 17:57 Trazodone HCl (Trazodone Hcl 100 Mg Tab) 100 mg PO HS AJ Stop: 01/07/25 21:59 Last Admin: 12/08/24 22:11 Dose: 100 mg Vitamin D (Cholecalciferol 25 Mcg (1000 Units) Tab) 25 mcg PO QAM AJ Stop: 01/06/25 10:59 Last Admin: 12/09/24 08:47 Dose: 25 mcg Vortioxetine (Vortioxetine Hydrobromide 5 Mg Tab) 10 mg PO DAILY AJ Stop: 01/08/25 08:59 Last Admin: 12/09/24 08:47 Dose: 10 mg Mental Health & Subst Abuse Tx Psychiatrist Name of Psychiatrist: Sarah Garcia Psychiatrist's Date Of Appointment With Psychiatric Provider: 12/27/24 Time of Appointment with Psychiatrist: 10:10a Psychiatric Appointment Comment: $10copay. Bring ID and insurance card. Intake appt about 1.5hrs Therapist Name of Therapist: [facility] ([address] [facility] [place] [address] ) Therapist's Date of Therapist Appointment: 12/19/24 Time of Therapist Appointment: 9am Therapy Appointment Comment: In person appt. Will get reminder text two days before appt Post Discharge Appointments Primary Care Physician Name Of Family Doctor/PCP: [facility] Provider Appointment Comment: Follow up as needed Contact Information Discharge Discharge Address: [address] [place] [id number]
--- NOTE | 2024-12-10 09:25 | Discharge Summary ---
Date of Service December 10, 2024 History of Present Illness Patient complains of recent academic stressors and breaking up with his girlfriend 1 week ago. Since then has an increase in anxious ruminations with fear of failure and often catastrophizes. This was his first real relationship. Reports regular anxious ruminations about academic stressors and social anxiety. Anxiety started in undergrad and has worsened since then. Associated sleep dysfunction with trouble falling asleep and has early awakenings. Associated physical symptoms of anxiety such as increased heart rate, restlessness, jaw clenching. Complains of recent panic attack prior to an exam and this is increased in frequency and intensity. "My mind is more active with a more negative thought pattern". Complains of sleep pattern disturbances, change in appetite, racing thoughts, excessive worry, anxiety attacks, hopelessness. He denies any change in activity, impulsivity, risk-taking behavior, obsessive-compulsive behavior, paranoia. Denies that this is episodic and has been gradually getting worse. Denies drug or alcohol problem and drinks socially. Denies suicidal ideation however reports recent passive SI related to a "lack of success" academically and feels he will never make it. Denies past suicide attempts. Goals of treatment are to get on the right medications to help cope with anxiety and build more positive thought pattern. Wants to learn new coping strategies. Wants to get 6 to 7 hours of sleep at night. Wants to feel more hopeful about the future. No past psychiatric hospitalizations. Previously took escitalopram in 2022 for 1 month had inconsistent use with side effect of lowered libido. Suspected insomnia and father and denies other known mental health problems in family. Takes testosterone weekly and reports levels have been stable. Patient grew up in [facility] and reports having a stable and good childhood. Denies emotional neglect, emotional abuse, physical abuse, sexual abuse. Has 1 fraternal twin brother who lives in [place]. 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 No legal problems or arrests. 12/05/24 18:40 - Psychiatric Liason Note by Karon Plata Pt arrived to [facility] at 1749 via wheelchair. Pt escorted by this senior technical writer and Alana Will, Psych liaison RN. Valuables searched and secured. Pt given tour of room and unit. Admission assessments complete. The patient arrived to the ED via Uber after a therapy session with Michelle Rodriguez through [facility]. This was their first time meeting and Michelle urged the patient to seek medical help due to having not slept since Wednesday morning (12/03/2024). The patient reports they have not slept for 54+ hours. The patient reports that he has been having anxiety surrounding his exams in his PHD program in mathematics, which has caused him not to be able to sleep. He reports that he also had a break up with his girlfriend 1 week ago, which has been a stressor. He took 325mg of benadryl and 3 ibuprofen pm for sleep within a few hours of one another last night. He reports that he would like to take part in treatment to decrease anxiety and be able to sleep. The patient does not currently see any outpatient providers, besides the therapist that he saw for the first time today, Michelel Rodriguez. He denies taking medications, or having a history of psychiatric illnesses. He reported that he has always been anxious, but "never sought medical help for it". He denies SI at this time, but reports he did have thoughts that he would be better off previously in the day. He reports that he usually only has these thoughts during times of high stress. He reports the thoughts have been occurring the last few years at times of high stress. He denies a plan, HI, and AVH. ROIs obtained for the patient's mother, as well as [facility]. Physical Exam Vital Signs (Past 24 Hours) Last Vital Signs Temp 37.1 C 12/10/24 06:00 Pulse 70 12/10/24 06:00 Resp 20 12/10/24 06:00 BP 127/62 12/10/24 06:00 Pulse Ox 96 12/10/24 06:00 O2 Del Method Room Air 12/10/24 06:00 Principal Diagnosis Major Depressive Disorder with anxious distress Psychiatric Data See daily stay summary. In short, patient was engaged with the social/therapeutic milieu of the unit, safety was maintained and the patient was cooperative with care. Medication changes included initiation of Trintellix for depression/anxiety, trazodone for sleep/depression, ativan for anxiety/sleep, clonidine for off-label use for anxiety/sleep and propranolol for off-label use for anxiety and they tolerated this well. A support session was held and safety plan was completed prior to discharge. They participated in safety planning and in discussions about ways to seek support and recognizing warning signs and utilizing coping skills. Reviewed ways to have their safety plan and contacts easily available should thoughts of SI re-emerge in the future. Reviewed importance of seeking emergency care should SI intensify, worsen or should they feel unsafe in the future which they agree to do. On the day of discharge they stated their mood was "excited" and remained future-oriented including relaxing, getting caught up on school work and engaging in aftercare appointments for psychiatry, therapy and [employer] student care and advocacy. Day of Discharge Assessment Today the patient voices readiness for discharge. They note improvement in mood and anxiety. They deny thoughts of harm to self or others. Thoughts remain organized and they are clinically improved from admission. There is no evidence of psychosis. They improved in the hospital with support and medication adjustments. They agree to take medications as prescribed and keep follow-up appointments. At the time of the discharge they are deemed to be stable and appropriate for outpatient level of care. They are not deemed to be at imminent risk of harm to self or others. They are aware of emergency and crisis services. Knows to call 911 or go to nearest emergency care center if in a crisis which cannot be handled as an outpatient. Suicide risk assessment: Acute risk is low given improvement in mood and denial of SI, lack of access to lethal means, improvement in sleep, hopefulness. Chronic risk is moderate given some non-modifiable risk factors: psychiatric co-morbid diagnoses but also with protective factors including student, good social support, sense of responsibility to family and social supports, outpatient care in place, positive coping skills, positive problem solving, willingness to engage with treatment and self-observation. Counseled on ways to reduce acute and chronic risk including engaging with outpatient providers, using safety plan if needed, utilizing supports, taking medication, and using coping skills. Modifiable risk factors of SI, anxiety, insomnia and depression were addressed during hospitalization through development of new coping skills, support meeting, safety planning, and medication adjustments. Discharge physical exam: See admission H&P, MSE per above and day of discharge summary. Overall, I spent a total of 35 minutes on this case including meeting with the patient, reviewing the chart, nursing report, multidisciplinary team meeting, discharge orders, anticipatory planning, safety planning, risk assessment and documentation. Transition of Care Transition Of Care Record: was reviewed with the patient Advance Directives Advance Directives Information Provided: Yes Advance Directives: No Mental Health Advance Directive: No Advance Directives on File: No Living Will: No Power of Peat Shredder Tender: No Advance Directives Reason:: Declines as Mental Health Visit. Suicide Risk Level Suicide Risk Level Comments: see assessment above Risk Factors Assessment Male: Yes : Yes Do You Have Access To A Gun?: No Health Problems: Yes (low testosterone) Mental Health Diagnoses: Yes Substance Use Disorders: No Previous Attempt: No Family History of Suicide: No Previous Psychiatric Hospitalization: No Hopelessness: No Protective Factors Assessment Rastafarian Beliefs: No : No Responsible for Young Children: No Employed: No Stable Relationships: Yes Supportive Family: Yes Good Rapport with Provider: Yes Absence of Any Risk Factors Above: No Discharge Data Lab Results 12/05/24 12/05/24 12/05/24 12:33 13:45 Unknown WBC 10.20 RBC 5.95 Hgb 18.5 H Hct 52.9 H MCV 88.9 MCH 31.1 MCHC 35.0 RDW Std Deviation 42.4 RDW Coeff of Jenna 12.9 Plt Count 316 MPV 10.1 Immature Gran % (Auto) 0.2 Neut % (Auto) 74.0 Lymph % (Auto) 16.5 Stewart % (Auto) 8.4 Eos % (Auto) 0.2 Baso % (Auto) 0.7 Neut # (Auto) 7.55 H Lymph # (Auto) 1.68 Stewart # (Auto) 0.86 H Eos # (Auto) 0.02 Baso # (Auto) 0.07 Immature Gran # (Auto) 0.02 Sodium 140 Potassium 4.2 Chloride 106 Carbon Dioxide 27 Anion Gap 7 BUN 15 Creatinine 0.93 Est Cr Clr Drug Dosing 107.7 eGFR 119.06 BUN/Creatinine Ratio 16.1 Glucose 92 Estimat Average Glucose Hemoglobin A1c Calcium 9.8 Total Bilirubin 0.5 AST 24 ALT 29 Alkaline Phosphatase 78 Total Protein 7.9 Albumin 4.7 Globulin 3.2 Albumin/Globulin Ratio 1.5 Triglycerides Cholesterol LDL Cholesterol, Calc VLDL Cholesterol, Calc HDL Cholesterol Cholesterol/HDL Ratio Vitamin B12 25-OH Vitamin D Total TSH 2.058 Urine Color Yellow Urine Appearance Turbid A Urine pH 8.0 H Ur Specific Rich[place] 1.010 Urine Protein Negative Urine Glucose (UA) Negative Urine Ketones Negative Urine Blood Negative Urine Nitrite Negative Urine Bilirubin Negative Urine Urobilinogen Negative Ur Leukocyte Esterase 3+ H Urine WBC (Auto) 11-20 H Urine RBC (Auto) 0-2 U Hyaline Cast (Auto) 0-2 U Epithel Cells (Auto) 6-10 H Urine Bacteria (Auto) 4+ H Urine Comment Salicylates < 3.0 L Urine Opiates Screen Neg Ur Methadone, Qual Neg Urine Fentanyl Screen Neg Acetaminophen < 3 L Urine Barbiturates Neg Ur Phencyclidine (PCP) Neg U Amphetamin/Meth Scrn Neg MDMA (Ecstasy) Screen Neg U Benzodiazepines Scrn Neg Ur Cocaine Metabolite Neg U Marijuana (THC) Screen Neg Ethyl Alcohol mg/dL < 10.0 SARS-CoV-2, RNA, NAAT NEGATIVE 12/07/24 07:30 WBC RBC Hgb Hct MCV MCH MCHC RDW Std Deviation RDW Coeff of Jenna Plt Count MPV Immature Gran % (Auto) Neut % (Auto) Lymph % (Auto) Stewart % (Auto) Eos % (Auto) Baso % (Auto) Neut # (Auto) Lymph # (Auto) Stewart # (Auto) Eos # (Auto) Baso # (Auto) Immature Gran # (Auto) Sodium Potassium Chloride Carbon Dioxide Anion Gap BUN Creatinine Est Cr Clr Drug Dosing eGFR BUN/Creatinine Ratio Glucose Estimat Average Glucose 97 Hemoglobin A1c 5.0 Calcium Total Bilirubin AST ALT Alkaline Phosphatase Total Protein Albumin Globulin Albumin/Globulin Ratio Triglycerides 62 Cholesterol 147 LDL Cholesterol, Calc 79 VLDL Cholesterol, Calc 12 HDL Cholesterol 56 Cholesterol/HDL Ratio 2.6 Vitamin B12 381 25-OH Vitamin D Total 30.9 TSH Urine Color Urine Appearance Urine pH Ur Specific Rich[place] Urine Protein Urine Glucose (UA) Urine Ketones Urine Blood Urine Nitrite Urine Bilirubin Urine Urobilinogen Ur Leukocyte Esterase Urine WBC (Auto) Urine RBC (Auto) U Hyaline Cast (Auto) U Epithel Cells (Auto) Urine Bacteria (Auto) Urine Comment Salicylates Urine Opiates Screen Ur Methadone, Qual Urine Fentanyl Screen Acetaminophen Urine Barbiturates Ur Phencyclidine (PCP) U Amphetamin/Meth Scrn MDMA (Ecstasy) Screen U Benzodiazepines Scrn Ur Cocaine Metabolite U Marijuana (THC) Screen Ethyl Alcohol mg/dL SARS-CoV-2, RNA, NAAT Hospital Course (1) Insomnia: (2) Passive suicidal ideations: (3) Major depressive disorder, single episode, moderate with anxious distress: (4) Generalized anxiety disorder: (5) Social anxiety disorder: Plan 12/10/2024: -Slept well again, feels safe and ready for discharge and would like to leave today 12/09/2024: -Continue current medications and tx plan 12/08/2024: Increase vortioxetine to 10 mg daily Discontinue zolpidem Start lorazepam 1 mg bedtime Start trazodone 100 mg at bedtime 12/07/2024: Discontinue lorazepam Start zolpidem 10 mg at bedtime Start propranolol 5 mg 3 times daily Start vitamin D3 25 mcg daily 12/06/2024:The patient was admitted to the [facility] ([facility] unit) on q15 min checks (behavioral with suicide precautions) for safety. The patient will participate in group, recreational, and milieu therapies and will be offered additional individual and family sessions as clinically appropriate. Start vortioxetine 5 mg daily Start lorazepam 1 mg at bedtime Start clonidine 0.1 mg at bedtime Labs: Vitamin D, vitamin B12, hemoglobin A1c, fasting lipid Questionnaires: CLARKE-7, MDQ, social anxiety scale Mental Health & Subst Abuse Tx Psychiatrist Name of Psychiatrist: Sarah Garcia Psychiatrist's Date Of Appointment With Psychiatric Provider: 12/27/24 Time of Appointment with Psychiatrist: 10:10a Psychiatric Appointment Comment: $10copay. Bring ID and insurance card. Intake appt about 1.5hrs Therapist Name of Therapist: JEZ Marie-Rick Castaneda ([address] [place] [address] ) Therapist's Date of Therapist Appointment: 12/19/24 Time of Therapist Appointment: 9am Therapy Appointment Comment: In person appt. Will get reminder text two days before appt Post Discharge Appointments Primary Care Physician Name Of Family Doctor/PCP: [facility] Provider Appointment Comment: Follow up as needed Other #1: Name of Aftercare Appointment: Student care and advocacy ([facility]) post hospitalization zoom Phone Number of Aftercare Appointment: [phone] Date of Aftercare Appointment: 12/14/24 Time of Aftercare Appointment: 10am Aftercare Appointment Comment: zoom link will be sent to your [facility] email Contact Information Discharge Discharge Address: [address] [place] [id number] Discharge Plan Discharge Items Patient Disposition: Home - Self-Care Reason For Visit: UNSPECIFIED ANXIETY DISORDER Discharge Diagnosis: Major Depressive Disorder with anxious distress Condition on Discharge: Good Activity: Resume your previous activity Non-emergency contact: Psychiatrist and Therapist Call non-emergency contact if: you have any medication questions and your symptoms worsen Follow-up/Referrals: PCP,NO [Primary Care Provider] - Diet: Regular Addtl Attending Provider Instructions: Optional mobile apps we discussed: -Suicide safety plan -Virtual Hope Box SPECIAL CARE INSTRUCTIONS: 1. Follow through with your scheduled aftercare appointments. If unable to keep an appointment, please call to reschedule. 2. Take your medication only as prescribed. Medication should not be changed or stopped without the approval of your doctor. In the event of worsening symptoms or concerns about side effects, contact your doctor immediately. 3. Utilize new healthy coping skills, anger management skills, and stress management skills learned during your hospitalization. Journal feelings and process them with a support person. Identify stressors or situations that may result in relapse, deterioration or inappropriate behaviors and develop a plan to deal with those issues. 4. If your coping skills are ineffective and you are in crisis, contact your outpatient providers for direction. If unable to reach your providers, please call the [facility] CRISIS LINE AT , go to the [facility] walk-in center at [address] [facility], [facility], [place], or go to the closest Emergency Room. 5. Avoid alcohol and un-prescribed drugs. 6. You have been provided with the Mental Health Advance Directives Pamphlet for your review. 7. Your condition is stable for discharge to outpatient level of care, but recovery is an ongoing process. Ifthoughts to harm yourself or others return, follow the safety plan developed during your stay. Planning for a safe return home includes securing weapons. Our treatment team recommends weaponsbe removed from the home until your outpatient provider reassesses your progress. In rare cases where the items themselvescannot be removed, guns and ammunitionshould be secured separatelyand keys stored by a reliable personoutside of the home. If you were admitted on an involuntary commitment, the police or other legal authorities may be involved in this process. AFTERCARE APPOINTMENTS: * Please call your insurance company prior to your scheduled appointment to confirm your aftercare providers are covered. Take your insurance information to your appointments. WHO TO CALL AND WHEN: Medical Emergencies: For questions or emergencies related to your hospital stay, please contact the Inpatient Behavioral Health Unit at [phone]. A insurance adjustor is on-call 21/09 for the Behavioral Health Unit for emergencies At any time you feel your situation is an emergency, you may also call 911 jamal yost. National Crisis Hotline: 988 Pending Studies at Discharge: No Stand-Alone Forms: My [facility] Medications and DC Order Prescriptions: New clonidine HCl 0.1 mg Tablet 0.1 mg PO HS 30 Days Qty: 30 0RF propranolol 10 mg Tablet 5 mg PO TID 30 Days Qty: 45 0RF trazodone 100 mg Tablet 100 mg PO HS 30 Days Qty: 30 0RF lorazepam 1 mg Tablet 1 mg PO HS 30 Days Qty: 30 0RF vortioxetine 10 mg tablet 10 mg PO DAILY 30 Days Qty: 30 0RF cholecalciferol (vitamin D3) 25 mcg (1,000 unit) Capsule 25 mcg PO QAM 30 Days Qty: 30 0RF hydroxyzine HCl 25 mg Tablet 25 mg PO BID PRN (Reason: anxiety/insomnia) 30 Days Qty: 30 0RF Discharge Orders: Discharge Order (Routine); Ordered 12/10/24 Ordered By: Liana Lopez Admission Data Admit Date/Time: 12/05/24 17:52 Attending Provider: Liana Lopez Admit Provider: Jj Flores Primary Care Provider: PCP,NO Other Interventions: Discharge Summary Assessment (RN) Last Done: 12/10/24 10:28 Coding Level of Care Code 86036 D/C day mgmt > 30 min Diagnoses Insomnia G47.00 Passive suicidal ideations R45.851 Major depressive disorder, single episode, moderate with anxious distress F32.1 Generalized anxiety disorder F41.1 Social anxiety disorder F40.10
== END 2024-12-10 10:52 | disposition home or self-care (01) | DRG 885 ==
LOC: ED 11:36 → 3S 17:47 → SUATTDRO 17:52 → 3S 17:52